=== PATIENT | male | born 1945 | race Caucasian/White ===

== ENCOUNTER → 2017-01-06 | Outpatient (CLI) | payer MEDICARE ==
--- NOTE | 2017-01-06 11:14 | US ---
EXAMINATION TYPE: US carotid duplex BILAT DATE OF EXAM: 01/06/2017 COMPARISON: NONE CLINICAL HISTORY: Renal insuff Nephrois R/L Ca Stenosis,I71.4,N18.2,I65.23. Patient states no symptom s EXAM MEASUREMENTS: RIGHT: Peak Systolic Velocity (PSV) cm/sec ----- Right CCA: 61.4 ----- Right ICA: 59.0 ----- Right ECA: 72.1 ICA/CCA ratio: 1.0 RIGHT: End Diastole cm/sec ----- Right CCA: 12.1 ----- Right ICA: 20.7 ----- Right ECA: 9.7 LEFT: Peak Systolic Velocity (PSV) cm/sec ----- Left CCA: 58.6 ----- Left ICA: 78.0 ----- Left ECA: 87.6 ICA/CCA ratio: 1.3 LEFT: End Diastole cm/sec ----- Left CCA: 13.5 ----- Left ICA: 31.8 ----- Left ECA: 12.5 VERTEBRALS (direction of flow): Right Vertebral: Antegrade Left Vertebral: Antegrade Bilateral intimal thickening, minimal plaque bilateral bulb, no elevated velocities, no significant s tenosis. IMPRESSION: No evidence for hemodynamically significant stenosis. Criteria for Assigning % of Stenosis / Diameter reduction (Estimation based on the indirect measurements of the internal carotid artery velocities (ICA PSV). 1. Normal (no stenosis)=ICA PSV < 125 cm/s: ratio < 2.0: ICA EDV<40 cm/s. 2. Less than 50% stenosis=ICA PSV < 125 cm/s: ratio < 2.0: ICA EDV<40 cm/s. 3. 50 to 69% stenosis=ICA PSV of 125 to 230 cm/s: ration 2.0 ? 4.0: ICA EDV 40-100 cm/s. 4. Greater than 70% stenosis to near occlusion= ICA PSV > 230 cm/s: ratio > 4.0: ICA EDV > 100 cm/s. 5. Near occlusion= ICA PSV velocities may be low or undetectable: variable ratio and ICA EDV. 6. Total occlusion=unable to detect flow.
--- NOTE | 2017-01-06 11:15 | US ---
EXAMINATION TYPE: US abdomen comp/pelvis limited DATE OF EXAM: 01/06/2017 COMPARISON: NONE CLINICAL HISTORY: Renal insuff Nephrois R/L Ca Stenosis,I71.4,N18.2,I65.23. Patient states no symptom s EXAM MEASUREMENTS: Liver Length: 16.3 cm Gallbladder Wall: 0.2 cm CBD: 0.3 cm Spleen: 10.9 cm Right Kidney: 11.5 x 5.0 x 5.9 cm Left Kidney: 11.4 x 5.4 x 6.2 cm Pancreas: obscured by overlying midline bowel gas Liver: wnl, scanned intercostally, limited by rib shadowing Gallbladder: wnl CBD: visualized portions wnl, limited by overlying bowel gas Spleen: wnl Right Kidney: 5.7 x 6.8 x 5.9cm exophytic cystic area inferior pole Left Kidney: multiple small cortical cystic areas with largest measuring 0.5cm Upper IVC: wnl Abd Aorta: proximal portion obscured by overlying midline bowel gas, mid portion appears wnl, distal portion aneurysmal at 3.4 x 4.0cm Bladder: not fully distended, wnl as seen Bilateral Jets Seen right jet not seen The pancreas is not visualized. The liver is normal in size without biliary dilatation. The gallbladder is normal without cholelithiasis. Gallbladder wall measures 2 mm. This common hepatic measures 3 mm. There is a simple appearing 6.8 cm cystic lesion arising from the lower pole of the right kidney. The re are multiple small hypoechoic lesions arising from the left kidney. These are all too small to dory racterize accurately. The spleen is normal in size. The bladder is unremarkable although not distended. The left ureteral jet is visualized. The right is not. 3 aneurysmal dilatation of the distal aorta with maximal transverse diameter 4 cm. IMPRESSION: 1. LARGE, SIMPLE APPEARING, 6.8 CM RIGHT LOWER POLE RENAL CYST. 2. INFRARENAL ABDOMINAL AORTIC ANEURYSM WITH MAXIMAL TRANSVERSE DIMENSION OF 4 CM. 3. MULTIPLE HYPOECHOIC LESIONS IN THE LEFT KIDNEY TOO SMALL TO CHARACTERIZE.
== END | disposition home or self-care (01) ==
LOC: RADUSWWP 09:53
PROVIDERS: ATTEND Internal Medicine
DX: N28.1 Cyst of kidney, acquired (principal); I71.4 Abdominal aortic aneurysm, without rupture; N28.9 Disorder of kidney and ureter, unspecified; I65.23 Occlusion and stenosis of bilateral carotid arteries; N18.2 Chronic kidney disease, stage 2 (mild); Z87.891 Personal history of nicotine dependence
CPT/HCPCS: 76700; 76857; 93880